=== PATIENT | female | born 1990 | race Caucasian/White ===

== ENCOUNTER 2019-02-23 17:12 | Emergency (ER) | payer OTHER ==
[~2019-02-23] VITALS: Ht 160 cm; Wt 60.3 kg
[2019-02-23 17:27] VITALS: Ht 160 cm; Wt 60.3 kg
[2019-02-23] MEDS ORDERED: ACETAMINOPHEN 325 MG TAB PO STA (19:10)
--- NOTE | 2019-02-23 19:14 | ERD ---
ER Documentation Chief Complaint Chief Complaint pelvic pain, cramps X 2 months, HX PCOS HPI This is a 28-year-old female with a history of polycystic ovarian syndrome, presents at roughly 4 months with lower pelvic pain. Patient states that she has had lower pelvic pain off and on for the past 2 months. Patient describes the pain as cramping. Patient was sent here by her OB doctor to be evaluated for pelvic pain and have a transvaginal ultrasound to assess cervical length. Patient's OB doctor is Dr. Kennedy. Last menstrual period was October 31, 2018. Denies fever, chills, dysuria, hematuria, nausea, vomiting, diarrhea, constipation, vaginal pain, vaginal discharge, vaginal bleeding and all other symptoms. Had an ultrasound performed at another hospital yesterday which was normal. ROS All systems reviewed and are negative except as per history of present illness. Allergies Allergies: Coded Allergies: No Known Allergy (Unverified , 02/23/19) PMhx/Soc Medical and Surgical Hx: pt denies Medical Hx, pt denies Surgical Hx Hx Alcohol Use: No Hx Substance Use: No Hx Tobacco Use: No Smoking Status: Never smoker FmHx Family History: No diabetes Physical Exam Vitals Vital Signs Date Temp Pulse Resp B/P (MAP) Pulse Ox O2 O2 Flow FiO2 Time Delivery Rate 02/23/19 98.8 80 18 123/60 98 17:27 (81) Physical Exam Physical Exam Vitals signs: Reviewed by me. General: Well developed, well nourished, in no acute distress. Patient is awake and alert. Head: Normocephalic, atraumatic. Eyes: Normal conjunctiva, Pupils PERRLA, EOM intact grossly ENT: Pharynx is clear, Moist mucous membranes, external ears, nose and mouth normal Neck: Supple, no masses, lymphadenopathy or JVD Respiratory: Clear to auscultation bilaterally with no wheezing, rhonchi, rales, no distress Cardiovascular: RRR, no murmurs, rubs, or gallops Abdominal: , no peritoneal signs, no rigidity, no surgical abdomen, bowel sounds present, nontender light deep palpation all 4 quadrants, mild suprapubic tenderness Back: No midline tenderness. No flank tenderness Neurologic: Alert and oriented, moving all extremities, normal speech, no focal weakness, no cerebellar signs. Normal mentation Skin: warm and dry, No rash Psych: Normal mood Result Diagram: 02/23/191939 Results 24 hrs Laboratory Tests Test 02/23/19 19:40 White Blood Count 9.7 10^3/ul Red Blood Count 3.81 10^6/ul Hemoglobin 11.6 g/dl Hematocrit 34.3 % Mean Corpuscular Volume 90.0 fl Mean Corpuscular Hemoglobin 30.4 pg Mean Corpuscular Hemoglobin Concent 33.8 g/dl Red Cell Distribution Width 12.9 % Platelet Count 237 10^3/UL Mean Platelet Volume 10.6 fl Immature Granulocytes % 0.700 % Neutrophils % 73.4 % Lymphocytes % 18.5 % Monocytes % 6.3 % Eosinophils % 0.7 % Basophils % 0.4 % Nucleated Red Blood Cells % 0.0 /100WBC Immature Granulocytes # 0.070 10^3/ul Neutrophils # 7.1 10^3/ul Lymphocytes # 1.8 10^3/ul Monocytes # 0.6 10^3/ul Eosinophils # 0.1 10^3/ul Basophils # 0.0 10^3/ul Nucleated Red Blood Cells # 0.0 10^3/ul Urine Color YELLOW Urine Clarity SLIGHTLY CLOUDY Urine pH 6.0 Urine Specific [place] 1.024 Urine Ketones TRACE mg/dL Urine Nitrite NEGATIVE mg/dL Urine Bilirubin NEGATIVE mg/dL Urine Urobilinogen NEGATIVE mg/dL Urine Leukocyte Esterase TRACE Doug/ul Urine Microscopic RBC 9 /HPF Urine Microscopic WBC 8 /HPF Urine Squamous Epithelial Cells MODERATE /HPF Urine Bacteria FEW /HPF Urine Mucus FEW /HPF Urine Hemoglobin NEGATIVE mg/dL Urine Glucose NEGATIVE mg/dL Urine Total Protein NEGATIVE mg/dl Beta HCG, Quantitative 12980.0 mIU/ml Current Medications Medications Dose Sig/Clarissa Start Time Status Last (Trade) Ordered Route PRN Stop Time Admin Dose Reason Admin 650 mg ONCE STAT 02/23/19 DC 02/23/19 Acetaminophen PO 19:10 02/23/19 19:40 (Tylenol 19:12 Tab) Procedures/MDM EKG, MONITORS, & DIAGNOSTIC IMAGING: [place] [id number] Radiology Main Line: [phone] DIAGNOSTIC IMAGING REPORT Patient: JERMAIN RIVERA : 1990 Age: 28 Sex: F MR #: [id number] DOS: 02/23/19 1915 Ordering MD: ISATU BARONE PA-C Location: FT Room/Bed: PROCEDURE: US OB AND ULTRASOUND CERVIX. CLINICAL INDICATION: Pelvic pain TECHNIQUE: Multiple sonographic images of the pelvis and gravid uterus were obtained. The images were reviewed on a PACS workstation. Transvaginal images of the cervix were also obtained. COMPARISON: No prior studies are available for comparison. FINDINGS: Cervix: Length: 3.0 cm. Closed and competent. Gestation: Single live intrauterine gestation. Cardiac activity: 159 beats per minute. Presentation: Breech Placenta: Location: Posterior Appearance: No previa or abruption. MVP = 5.2 cm Measurements: BPD = 3.3 cm, 16 weeks and 1 day HC = 12.6 cm, 16 weeks and 3 days AC = 10.7 cm, 16 weeks and 4 days FL = 2.2 cm, 16 weeks and 3 days Gestational Age: AUA estimated gestational age: 16 weeks 3 days LMP estimated gestational age: 16 weeks 3 days AUA estimated date of delivery: 08/07/19 The EFW = 158 g, 46.8%ile based on LMP age. The right ovary is normal with normal Doppler flow, measuring 2.9 x 1.9 x 3.3 cm. The left ovary was not visualized. RPTAT: AA IMPRESSION: Single live intrauterine gestation of approximately 16 weeks and 3 days based on ultrasound measurements. .Franc Patricio MD, MD Date Time Electronically viewed and signed by .Franc Patricio MD, on 02/23/2019 20:29 .S/ CC: ISATU BARONE PA-C [id number] LAB INTERPRETATION: CBC shows no evidence of hemorrhage or infection, mildly decreased hemoglobin 11.6, hematocrit 34.3 HCG 88973.0 Urinalysis shows 8 microscopic WBC, 9 RBC, trace leukocyte esterase Blood type O positive ER COURSE: The patient was given Tylenol The medication was well tolerated and the patient reports improvement in symptoms. The patient was stable throughout ED course. I kept the patient and/or family informed of laboratory and diagnostic imaging results throughout the emergency room course. The patient was promptly evaluated and a treatment plan was devised based on H&P and other data. This plan was discussed with the patient who agreed and had no further questions or concerns prior to discharge. MEDICAL DECISION MAKING: This is a 28-year-old female with a history of polycystic ovarian syndrome, presents at roughly 4 months with lower pelvic pain. Patient states that she has had lower pelvic pain off and on for the past 2 months. Patient describes the pain as cramping. Patient was sent here by her OB doctor to be evaluated for pelvic pain and have a transvaginal ultrasound to assess cervical length. Ultrasound was ordered to rule out placenta previa, placental abruption, premature rupture of brains and to check heart tones fetus. Patient is blood type O+ and does not require any RhoGam. CBC is unremarkable with no signs of anemia or hemorrhage. Patient is hemodynamically stable. Urinalysis reflects UTI will treat patient for UTI. Ultrasound shows a closed competent cervix with no appearance of central previa or abruption. Ultrasound shows a single intrauterine gestation with a heart rate of 159 bpm. Advised patient follow-up with her [facility] specialist in the next 48 hours to have possible repeat ultrasound. At this time there is no [facility] emergency. Return to ED w ith any worsening symptoms. DISPOSITION PLAN: We discussed follow up with the patient's primary care doctor within 24 to 48 hours. Patient counseled regarding my diagnostic impression and care plan. Prior to discharge all questions answered. Pt agrees with treatment plan and understands strict return precautions. Precautionary instructions provided including instructions to return to the ER if not improving or for any worsening or changing symptoms or concerns. SPECIALIST FOLLOW UP RECOMMENDED:OB Patient has been advised to follow up with primary care in 1-2 days. Disclaimer: Inadvertent spelling and grammatical errors are likely due to EHR/dictation software use and do not reflect on the overall quality of patient care. Also, please note that the electronic time recorded on this note does not necessarily reflect the actual time of the patient encounter. Departure Diagnosis: Primary Impression: Pelvic pain complicating Trimester: second trimester Qualified Codes: O26.892 - Other specified related conditions, second trimester; R10.2 - Pelvic and perineal pain Additional Impression: UTI (urinary tract infection) in in second trimester Condition: Stable Patient Instructions: Adapting to : Second Trimester, Pelvic Pain In : Unclear (2-3 Trimester), : Your Second Trimester Changes, Understanding Urinary Tract Infections (UTIs) Referrals: [facility] REFERRAL LIST Additional Instructions: Patient advised to return to the ED immediately for new or worsening symptoms. Patient advised to follow up with primary care provider in the next 24-48 hours. Patient verbalized understanding and agrees with treatment plan and course of action. If patient has no primary care they may follow up with one of the community clinics listed on the following page or one of the options listed below [facility] + [address] [address] or [facility] [id number] [place] [id number] or [facility] [address] [place] [address] ISATU BARONE PA-C Feb 23, 2019 19:14
[2019-02-23] MEDS ORDERED: CEPH-443 PO (21:34)
[2019-02-23 21:48] VITALS: BP 103/55; PULSE 81; RESP 18
== END 2019-02-23 21:49 | disposition home or self-care (01) ==
LOC: FTE 17:12
DX: O26.892 Other specified pregnancy related conditions, second trimester (principal); R10.2 Pelvic and perineal pain; O23.42 Unspecified infection of urinary tract in pregnancy, second trimester; Z3A.16 16 weeks gestation of pregnancy
CPT/HCPCS: 36415; 76805; 76817; 81001; 84702; 85025; 86900; 86901; 87086; Z7502; Z7610